=== PATIENT | female | born 1960 | race Caucasian/White ===

== ENCOUNTER 2021-11-12 13:53 | Emergency (ER) | payer BC, SELFPAY ==
--- NOTE | ~2021-11-12 | XR_ITS ---
EXAMINATION: XR foot RT min 3V EXAM DATE: 11/12/2021 14:18 INDICATION: Right foot injury. TECHNIQUE: Right foot dorsoplantar, lateral and oblique projections obtained and reviewed. There is no prior study for comparison. FINDINGS: Right metatarsal bones unremarkable. There is acute closed posttraumatic nondisplaced fra ctures through the shaft of the right 5th proximal phalanx. There is overlying soft tissue swelling. IMPRESSION: Right 5th proximal phalangeal shaft fracture. Reviewed, dictated and finalized at location A. TAL GAZER
[2021-11-12 14:08] VITALS: BP 145/91; PULSE 107; RESP 16; TEMP 36.3; O2SAT 98
--- NOTE | 2021-11-12 14:50 | ED.LOWEXIN ---
HPI - Extremity Injury (Lower) General Chief Complaint: Extremity Injury, Lower Stated Complaint: right foot /toe injury Time Seen by Provider: 11/12/21 14:37 Source: patient and RN notes reviewed Mode of arrival: ambulatory Limitations: no limitations History of Present Illness HPI Narrative: Patient presents today complaining of right foot pain. States she stubbed her toe on the foot of the table yesterday [employer] injuring her foot and toes. She currently rates pain 7/10 and has been applying ice and taking ibuprofen with some relief. She does report some numbness to the fifth toe. MD complaint: foot injury Related Data Home Medications Medication Instructions Recorded Confirmed bupropion HCl mg PO 11/12/21 dextroamphetamine-amphetamine PO 11/12/21 doxepin 11/12/21 lorazepam 11/12/21 omeprazole 11/12/21 sacubitril-valsartan [Entresto] 11/12/21 Allergies Allergy/AdvReac Type Severity Reaction Status Date / Time No Known Allergies Allergy Verified 11/12/21 14:25 Review of Systems Review of Systems: CONSTITUTIONAL: Denies body aches, fever, chills, or sweats. EYES: Denies visual changes, redness, or discharge. ENT: Denies rhinorrhea, congestion, sore throat, or otalgia. CARDIOVASCULAR: Denies chest pain, palpitations, or edema. RESPIRATORY: Denies cough or dyspnea. GASTROINTESTINAL: Denies abdominal pain, nausea, vomiting, or diarrhea. GENITOURINARY: Denies dysuria or hematuria. SKIN: Denies rash, itching, or wounds. MUSCULOSKELETAL: Denies back pain, or myalgia. + Right foot injury NEUROLOGIC: Denies headache, numbness, tingling, or weakness. PSYCH: Denies depression or anxiety. PMFSH Comments At time of signature, I have reviewed and agree with nursing past medical, surgical, social and family history unless otherwise noted. Please see nursing chart for further information. There is no relevant family history pertinent to the presenting complaint Exam Narrative: GENERAL: Well-appearing, well-nourished, and in no acute distress. HEAD: Normocephalic, atraumatic. EYES: EOMI. No redness or drainage. Conjunctivae normal. ENT: Mucous membranes pink and moist. NECK: Normal AROM. CHEST: No respiratory distress. EXTREMITIES: Right foot: Ecchymosis to the distal portion of the dorsum of the foot. Ecchymosis to the fifth toe with mild edema. Tenderness to the fifth toe and fourth and fifth metatarsals. Distal sensation intact. Capillary refill normal. Pedal pulse normal. Full range of motion of all toes. SKIN: Warm, dry, no rash. Capillary refill normal. Normal skin turgor. NEURO: No focal deficits. Alert and oriented x3. Gait steady. PSYCH: Normal affect. No signs of depression or anxiety. Course Vital Signs Vital signs: Vital Signs Temperature 97.3 F L 11/12/21 14:08 Pulse Rate 107 H 11/12/21 14:08 Respiratory Rate 16 11/12/21 14:08 Blood Pressure 145/91 H 11/12/21 14:08 Pulse Oximetry 98 11/12/21 14:08 Temperature 97.3 F L 11/12/21 14:08 Pulse Rate 107 H 11/12/21 14:08 Respiratory Rate 16 11/12/21 14:08 Blood Pressure 145/91 H 11/12/21 14:08 Pulse Oximetry 98 11/12/21 14:08 Reviewed. Pt has been instructed to follow up with her PCP regarding her elevated blood pressure today. MDM - Extremity Injury (Lower) Differential Diagnosis Differential diagnosis: Likely fracture of toe and other (Foot fracture, foot contusion, foot sprain, toe sprain) Imaging Data Radiologist's impression: ITS Impressions Foot X-Ray 11/12/21 14:34 IMPRESSION: Right 5th proximal phalangeal shaft fracture. Critical Care Time Critical Care Time Critical Care Time: No Discharge Plan Discharge Clinical Impression: Fracture of right toe Qualifiers: Encounter type: initial encounter Toe: lesser toe Fracture type: closed Phalanx: proximal Fracture alignment: nondisplaced Qualified Code(s): S92.514A - Nondisplaced fracture of proximal phalanx of
== END 2021-11-12 15:04 | disposition home or self-care (01) ==
PROVIDERS: Emergency Provider Nurse Practitioner
DX: S92.514A Nondisplaced fracture of proximal phalanx of right lesser toe(s), initial encounter for closed fracture (principal); X58.XXXA Exposure to other specified factors, initial encounter; I10 Essential (primary) hypertension
CPT/HCPCS: 73630; 99214; G0463